=== PATIENT | male | born 1970 | race Two or more races ===

== ENCOUNTER → 2017-03-10 | Outpatient (CLI) | payer BC ==
[~2017-03-10] MED LIST: IOHEXOL 240 MG/ML 50ML VIAL. ONE; IOHEXOL 300 MG/ML 75 ML VIAL. IV ONE
--- NOTE | 2017-03-10 13:36 | RAD ---
CT abdomen/pelvis with contrast 03/10/2017 at 1039 hours Indication: Left lower quadrant abdominal pain for 2 days. Comparison: None available Technique: Multiple axial CT images of the abdomen and pelvis were obtained after the intravenous administration of 75 mL is Omnipaque 300. Coronal and sagittal reformats are provided. Findings: Visualized portions of the lung bases are normal. Heart size is within normal limits. Subcentimeter hypodense foci in the hepatic parenchyma are to small to characterize, however are felt to represent simple cysts or hemangiomas (series 2, images 15, 17, and 20). Spleen, bilateral adrenal glands, and pancreas are within normal limits. Gallbladder is present without adjacent inflammatory changes. No intrahepatic or extrahepatic biliary ductal dilatation. Kidneys enhance symmetrically. There is no hydronephrosis. No renal calculi are identified. No suspicious renal mass. The abdominal aorta is normal in course and caliber. There are no enlarged lymph nodes in the abdomen or pelvis. There is no abdominal free fluid. No free intraperitoneal air. There are no dilated loops of small or large bowel. Colonic diverticulosis is noted without adjacent inflammatory changes to suggest diverticulitis. Normal appendix is visualized without adjacent inflammatory changes. Urinary bladder is within normal limits. Prostate seminal vesicles are grossly within normal limits. Impression: 1. No significant abnormality is identified within the abdomen and pelvis. 2. Mild colonic diverticulosis without adjacent inflammatory changes to suggest diverticulitis. 3. At least three tiny subcentimeter hypodense foci in the hepatic parenchyma are favored to represent benign etiology such as simple cysts or hemangiomas. PQRS Compliance Statement: One or more of the following individualized dose reduction techniques were utilized for this examination: 1. Automated exposure control 2. Adjustment of the mA and/or kV according to patient size 3. Use of iterative reconstruction technique
[2017-03-10 14:49] LABS: BASO # 0.1 x10^3/uL (0.0-0.2); BASO % 1 % (0-3); EOS # 0.1 x10^3/uL (0.0-0.7); EOS % 1 % (0-3); HEMATOCRIT 45.9 % (39.0-53.0); HEMOGLOBIN 15.5 g/dL (13.0-17.5); LYMPH # 2.2 x10^3/uL (1.0-4.8); LYMPH % 32 % (24-48); MEAN CORPUSCULAR HEMOGLOBIN 29 pg (25-35); MEAN CORPUSCULAR HGB CONC 34 g/dL (31-37); MEAN CORPUSCULAR VOLUME 85 fL (79-100); MONO # 0.5 x10^3/uL (0.0-1.1); MONO % 8 % (0-9); NEUT # 3.9 x10^3uL (1.8-7.7); NEUT % 58 % (31-73); PLATELET COUNT 196 x10^3/uL (140-400); RED BLOOD COUNT 5.41 x10^6/uL (4.30-5.70); RED CELL DISTRIBUTION WIDTH 14.6 % (11.5-14.5); WHITE BLOOD COUNT 6.7 x10^3/uL (4.0-11.0)
[2017-03-10 14:56] LABS: ALBUMIN 3.9 g/dL (3.4-5.0); ALBUMIN/GLOBULIN RATIO 1.2 (1.0-1.7); CALCIUM 8.8 mg/dL (8.5-10.1); CREATININE 1.1 mg/dL (0.7-1.3); GFR 72.4; POTASSIUM 3.8 mmol/L (3.5-5.1); TOTAL BILIRUBIN 0.7 mg/dL (0.2-1.0); TOTAL PROTEIN 7.2 g/dL (6.4-8.2)
[2017-03-11 04:13] LABS: HEMOGLOBIN A1C 5.6 % (4.8-5.6)
== END | disposition home or self-care (01) ==
LOC: CT 09:13 → EDSEX 09:13
PROVIDERS: ATTEND Family Medicine
DX: K57.30 Diverticulosis of large intestine without perforation or abscess without bleeding (principal)
CPT/HCPCS: 74177; 80053; 85025; Q9966; Q9967; 36415; 80061; 83036

== ENCOUNTER → 2017-04-16 | Outpatient (CLI) | payer BC ==
[~2017-04-16] MED LIST changes: +BARIUM SULFATE 60% 355 ML SUSP PO ONE; -IOHEXOL 240 MG/ML 50ML VIAL. ONE; -IOHEXOL 300 MG/ML 75 ML VIAL. IV ONE
--- NOTE | 2017-04-16 12:38 | RAD ---
Small bowel series, 04/16/2017: History: Left-sided lump The preliminary abdominal image shows no abnormality. Overhead and spot films were obtained following oral ingestion of liquid barium. 2.1 minutes of fluoroscopy time is utilized. 4 fluoroscopic spot images were recorded. The small bowel loops are of normal caliber with no evidence of thickening of their folds. There is normal transit of the barium through the small bowel into the colon. The terminal ileum is unremarkable. IMPRESSION: No significant small bowel abnormality is detected.
== END | disposition home or self-care (01) ==
LOC: RAD 09:19
PROVIDERS: ATTEND Internal Medicine Gastroenterology
DX: R10.9 Unspecified abdominal pain (principal); R19.00 Intra-abdominal and pelvic swelling, mass and lump, unspecified site
CPT/HCPCS: 74250

== ENCOUNTER 2019-01-07 12:32 | Emergency (ER) | payer BC ==
[~2019-01-07] VITALS: Ht 177.8 cm; Wt 91.6 kg
[2019-01-07] MEDS ORDERED: IV NORMAL SALINE 1,000ML 1,000 ML IV ONE ×2 (13:00→15:30)
--- NOTE | 2019-01-07 13:03 | PHYS DOC ---
Past History Past Medical History: No Pertinent History Past Surgical History: No Surgical History Smoking: Non-smoker Alcohol Use: None Drug Use: None Adult General Chief Complaint Chief Complaint: ALTERED MENTAL STATUS HPI HPI Patient is a 48-year-old male with waxing and waning headache and dizziness over the past week. No specific location for the headache. Several episodes of nausea and vomiting. No neck stiffness. No relief with the medications prescribed on post. No photophobia or phonophobia. No trauma. Patient is from [place] but has not been there recently. Nothing makes the symptoms significantly better or worse.[] Review of Systems Review of Systems Constitutional: Denies fever or chills [] Eyes: Denies change in visual acuity, redness, or eye pain [] HENT: Denies nasal congestion or sore throat [] Respiratory: Denies cough or shortness of breath [] Cardiovascular: No additional information not addressed in HPI [] GI: Denies abdominal pain, nausea, vomiting, bloody stools or diarrhea [] : Denies dysuria or hematuria [] Musculoskeletal: Denies back pain or joint pain [] Integument: Denies rash or skin lesions [] Neurologic: Denies focal weakness or sensory changes, see history of present illness [] Endocrine: Denies polyuria or polydipsia [] All other systems were reviewed and found to be within normal limits, except as documented in this note. Allergies Allergies Allergies Coded Allergies Type Severity Reaction Last Updated Verified poison oak extract Allergy Unknown 03/10/17 Yes Physical Exam Physical Exam Constitutional: Well developed, well nourished, no acute distress, non-toxic appearance. [] HENT: Normocephalic, atraumatic, bilateral external ears normal, oropharynx moist, no oral exudates, nose normal. [] Eyes: PERRLA, EOMI, conjunctiva normal, no discharge. [] Neck: Normal range of motion, no tenderness, supple, no stridor. No nuchal rigidity, no cervical lymphadenopathy[] Cardiovascular:Heart rate regular rhythm, no murmur [] Lungs & Thorax: Bilateral breath sounds clear to auscultation [] Abdomen: Bowel sounds normal, soft, no tenderness, no masses, no pulsatile masses. [] Skin: Warm, dry, no erythema, no rash. [] Back: No tenderness, no CVA tenderness. [] Extremities: No tenderness, no cyanosis, no clubbing, ROM intact, no edema. [] Neurologic: Alert and oriented X 3, normal motor function, normal sensory function, no focal deficits noted. While speaking, patient starts having difficulty getting words out at various times. This does not appear to be a la nguage translation issue, and does not sound like Italian[] Psychologic: Affect normal, judgement normal, mood normal. [] Current Patient Data Lab Results Laboratory Tests Test 01/07/19 12:50 Glucose (Fingerstick) 116 mg/dL (70-99) H EKG EKG EKG shows a sinus rhythm at 74 bpm, left axis, normal QTC, no ST elevation. No fibrillation. Normal intervals. Interpreted by me at 1315[] Radiology/Procedures Radiology/Procedures EXAM: CT HEAD WITHOUT CONTRAST. HISTORY: Headache, dizziness, aphasia. TECHNIQUE: Computed tomography of the head was performed without intravenous contrast. COMPARISON: None. FINDINGS: There is no intracranial hemorrhage. Vazquez-white differentiation is preserved. The ventricles are normal in size and position. The visualized paranasal sinuses appear clear. The orbits are unremarkable. The temporal bones are unremarkable. The calvarium reveals no suspicious lesions. IMPRESSION: 1. No acute intracranial findings. These findings were called to Dr. Reeder by Jefe Brewer on 01/07/2019 at 1:10 PM. Single view chest dated 01/07/2019: No comparison available. Clinical Indication: Fever. Findings: Single upright portable exam of the chest was performed. Heart size and mediastinal contours are within normal limits given technique. The lungs are clear without evidence of focal consolidation. Vascular interstitium is within normal limits. Impression:: Negative portable chest.[] Course & Med Decision Making Course & Med Decision Making Pertinent Labs and Imaging studies reviewed. (See chart for details) ED course: Patient arrived, was placed in bed, and tolerated exam well. He was transported to and from [place] with any complications. After the return of lab and CT findings, there is concern for possibility of meningitis. Patient refuses spinal tap. He continues to be waxing and waning in his mental status. He did a chieve headache and nausea control along with fever reduction with medications given in the emergency department to include Reglan, Benadryl, acetaminophen, and Toradol. As the medication took effect, his heart rate remained stable however his blood pressure decreased to 90/41. A second liter of IV fluids were started. He still has episodes where he speaks the gibberish and catches himself as he is doing it. He continues to refuse LP. Initially consultation was made with hospitalist service here at [facility] for admission. Due to the possible need for MRI which is not available, it was elected to admit the patient to a facility that could provide this. [facility] was contacted. Dr. Mercado graciously accepted the patient in transfer. Arranging for an ICU bed. Consultation was made with infectious disease at [place] as well given the refusal of the LP. Dr Cloud recommended doxycycline and, acyclovir, Rocephin, and vancomycin which were ordered here at [facility] however may not be started. Also recommendation for West Nile testing be performed. Patient was transferred in improved condition. 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 Uncertain as to the full etiology of this toxic/metabolic encephalopathy. Concern for bleed was present but does not appear given the negative CT findings. No evidence of significant electrolyte abnormality. Patient with a fever but no elevated white count nor lactate nor heart rate, does not meet sepsis criteria. Patient being transferred to a facility with higher capabilities to include infectious disease as well as MRI and neurology.[] Dragon Disclaimer Dragon Disclaimer This electronic medical record was generated, in whole or in part, using a voice recognition dictation system. Departure Departure: Impression: Primary Impression: Acute febrile illness Additional Impression: Acute metabolic encephalopathy Disposition: 05 TRANSFER OTHER Condition: IMPROVED Referrals: TANK GOMEZ MD (PCP) Problem Qualifiers FAIZA REEDER DO Jan 07, 2019 13:03
--- NOTE | 2019-01-07 13:14 | RAD ---
EXAM: CT HEAD WITHOUT CONTRAST. HISTORY: Headache, dizziness, aphasia. TECHNIQUE: Computed tomography of the head was performed without intravenous contrast. COMPARISON: None. FINDINGS: There is no intracranial hemorrhage. Vazquez-white differentiation is preserved. The ventricles are normal in size and position. The visualized paranasal sinuses appear clear. The orbits are unremarkable. The temporal bones are unremarkable. The calvarium reveals no suspicious lesions. IMPRESSION: 1. No acute intracranial findings. These findings were called to Dr. Reeder by Jefe Brewer on 01/07/2019 at 1:10 PM. *One or more of the following individualized dose reduction techniques were utilized for this examination: 1. Automated exposure control. 2. Adjustment of the mA and/or kV according to patient size. 3. Use of iterative reconstruction technique. Electronically signed by: Jarrod Brewer MD (01/07/2019 1:12 PM) [facility]
--- NOTE | 2019-01-07 13:14 | EKG ---
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
[2019-01-07 13:17] LABS: BASO % 1 % (0-3); EOS % 0 % (0-3); HEMATOCRIT 45.1 % (39.0-53.0); HEMOGLOBIN 15.1 g/dL (13.0-17.5); LYMPH # 0.6 x10^3/uL (1.0-4.8); LYMPH % 13 % (24-48); MEAN CORPUSCULAR HEMOGLOBIN 28 pg (25-35); MEAN CORPUSCULAR HGB CONC 33 g/dL (31-37); MEAN CORPUSCULAR VOLUME 83 fL (79-100); MONO # 0.3 x10^3/uL (0.0-1.1); MONO % 7 % (0-9); NEUT # 3.4 x10^3uL (1.8-7.7); NEUT % 79 % (31-73); PLATELET COUNT 163 x10^3/uL (140-400); RED BLOOD COUNT 5.44 x10^6/uL (4.30-5.70); RED CELL DISTRIBUTION WIDTH 14.5 % (11.5-14.5); WHITE BLOOD COUNT 4.3 x10^3/uL (4.0-11.0)
[2019-01-07 13:30] LABS: ALBUMIN 3.5 g/dL (3.4-5.0); ALBUMIN/GLOBULIN RATIO 0.8 (1.0-1.7); CALCIUM 9.2 mg/dL (8.5-10.1); CREATININE 1.2 mg/dL (0.7-1.3); GFR 64.9; MAGNESIUM 1.9 mg/dL (1.8-2.4); POTASSIUM 3.6 mmol/L (3.5-5.1); TOTAL BILIRUBIN 0.6 mg/dL (0.2-1.0); TOTAL PROTEIN 7.7 g/dL (6.4-8.2)
[2019-01-07] MEDS ORDERED: METOCLOPRAMIDE HCL 10 MG/2 ML VIAL. IV ONE (13:30)
[2019-01-07 13:37] LABS: INFLUENZA A PATIENT NEGATIVE (NEGATIVE); INFLUENZA B PATIENT NEGATIVE (NEGATIVE)
--- NOTE | 2019-01-07 13:52 | RAD ---
Single view chest dated 01/07/2019: No comparison available. Clinical Indication: Fever. Findings: Single upright portable exam of the chest was performed. Heart size and mediastinal contours are within normal limits given technique. The lungs are clear without evidence of focal consolidation. Vascular interstitium is within normal limits. Impression:: Negative portable chest. Electronically signed by: Denver Billingsley MD (01/07/2019 1:49 PM) [facility] [place]
[2019-01-07] MEDS ORDERED: ACETAMINOPHEN 500 MG TABLET PO ONE (14:15)
[2019-01-07] MEDS ORDERED: KETOROLAC 15 MG/ML VIAL. IV ONE (14:15)
[2019-01-07 14:32] LABS: BARBITURATES NEG (NEG); BENZODIAZEPINES NEG (NEG); CANNABINOIDS NEG (NEG); COCAINE NEG (NEG); METHADONE NEG (NEG); OPIATES NEG (NEG); PHENCYCLIDINE NEG (NEG)
[2019-01-07 14:37] LABS: AMPHETAMINE/METHAMPHETAMINE NEG (NEG)
[2019-01-07 14:39] LABS: BILIRUBIN,URINE SMALL (NEG); CLARITY,URINE CLEAR; COLOR,URINE AMBER; GLUCOSE,URINE NEG (NEG)
[2019-01-07 14:40] LABS: BACTERIA,URINE 0 /HPF (0-FEW); NITRITE,URINE NEG (NEG); RBC,URINE RARE /HPF (0-2); SQUAMOUS EPITHELIAL CELL,UR FEW /LPF; UROBILINOGEN,URINE 2 mg/dL (0.2 mg/dL); WBC,URINE OCC /HPF (0-4)
[2019-01-07] MEDS ORDERED: diphenhydrAMINE 50 MG/ML VIAL IVP ONE (14:45)
[2019-01-07 15:19] VITALS: BP 90/41
[2019-01-07] MEDS ORDERED: IV NORMAL SALINE 100ML 100 ML ONE (15:52)
[2019-01-07] MEDS ORDERED: DOXYCYCLINE HYCLATE 100 MG in IV DEXTROSE 5% 100 ML IV ONE (16:00)
[2019-01-07] MEDS ORDERED: VANCOMYCIN 2 GM in IV NORMAL SALINE 500ML 500 ML IV ONE (16:30)
[2019-01-07] MEDS ORDERED: ACYCLOVIR SODIUM 730 MG in IV DEXTROSE 5% 250 ML IV SCH (22:00)
[2019-01-10 13:08] LABS: WEST NILE IGG Negative (Negative); WEST NILE IGM Negative (Negative)
== END 2019-01-07 16:22 | disposition short-term general hospital (02) ==
LOC: ER 12:32
DX: G93.41 Metabolic encephalopathy (principal); R41.82 Altered mental status, unspecified
CPT/HCPCS: 36415; 70450; 71045; 80053; 80307; 81001; 82947; 83605; 83735; 83880; 84484; 85025; 85610; 85730; 86788; 86789; 87040; 87070; 87804; 87880; 93005; 96361; 96374; 96375; 99285; J0696; J1200; J1885; J2765; 96365; J7030